=== PATIENT | male | born 1940 | race Caucasian/White ===

== ENCOUNTER 2020-07-04 06:20 | Day surgery (SDC) | payer MEDICARE, SELFPAY ==
[2020-07-04 06:22] VITALS: BP 143/93; PULSE 63; RESP 18; TEMP 36.4; O2SAT 97
[2020-07-04] MEDS: Tropicam./Phenyleph. (1/2.5%) 5 ML BTL OD ×3 (06:45→06:51)
[2020-07-04] MEDS: Povidone-Iodine Ophth 30 ML BTL (07:31)
[2020-07-04] MEDS: Tetracaine 0.5% 4 ML BTL OD (07:31)
[2020-07-04] MEDS: Lidocaine 2% Jelly 6 ML SYR (07:31)
[2020-07-04] MEDS: Balanced Salt Soln.-PLUS 500 ML BAG (07:36)
[2020-07-04] MEDS: Lidocaine 1% Pres-Free 5 ML VIAL (07:36)
[2020-07-04] MEDS: Moxifloxacin-PF 1 MG/ML VIAL (07:56)
--- NOTE | 2020-07-04 08:04 | W.PM.DSUDISC ---
Discharge Plan Disposition Patient Disposition: HOME Condition: Good Discharge Details Attending Provider: Vasquez Hernandez Primary Care Provider: Vasquez Samuel Meds and New Rx's Prescriptions: No Action lisinopril 20 mg Tablet 20 mg PO DAILY RF: 0 sulfamethoxazole-trimethoprim [Bactrim DS] 800-160 mg Tablet 1 tab PO BID RF: 0 sildenafil [Viagra] 100 mg Tablet 25 - 50 mg PO DAILY PRNRF: 0 warfarin 4 mg Tablet 4 mg PO DIRECTED RF: 0 warfarin 3 mg Tablet 3 mg PO DIRECTED RF: 0 zinc gluconate 30 mg Tablet 15 mg PO DAILY RF: 0 warfarin 2 mg Tablet 2 mg PO DIRECTED RF: 0 bilberry 100 mg Capsule 150 mg PO DIRECTED RF: 0 furosemide [Lasix] 20 mg Tablet 20 mg PO DAILY RF: 0 garlic 400 mg Tablet 800 mg PO DAILY RF: 0 cholecalciferol (vitamin D3) [Vitamin D3] 25 mcg (1,000 unit) Capsule 25 mcg PO DAILY RF: 0 alfalfa 250 mg Tablet 1,000 mg PO DIRECTED RF: 0 Discharge Instructions Stand Alone Forms: Post-op Topical CataractMariana (DSU) DS: Diagnosis Discharge Diagnosis (1) Nuclear sclerotic cataract of right eye: Status: Resolved (2) Cortical cataract of right eye: Status: Resolved
--- NOTE | 2020-07-04 08:05 | ROE_ITS ---
Date of service: 07/04/20 Time of Service: 08:05 Operative Note Operative Note DATE OF PROCEDURE: 07/04/20 PRE-OP DIAGNOSIS: Nuclear/cortical cataract, right eye POST-OP DIAGNOSIS: same PROCEDURE: Cataract extraction using phacoemulsification with intraocular lens implant, right eye SURGEON: Vasquez Hernandez ANESTHESIA: MAC and local (sub-tenon's anesthetic infiltration) ESTIMATED BLOOD LOSS: 0 PATHOLOGY: none sent COMPLICATIONS: None Patient was transported to: same day Patient's condition: stable Implants: Vince [employer] Vince [employer] / [employer] Tecnis ZCB00 intraocular lens Indications: Progressive decreased vision due to cataract, right eye Procedure Description: CATARACT SURGERY OPERATIVE REPORT PREOPERATIVE DIAGNOSIS: Nuclear/cortical cataract, right eye POSTOPERATIVE DIAGNOSIS: Same OPERATION: Cataract extraction using phacoemulsification with posterior chamber intraocular lens implant, right eye. IOL: IOL Skip Pit Worker/Model: [employer] Vision / LA Tecnis ZCB00 IOL Power: + 15.50 diopters IOL Serial Number: [id number] Optic Diameter: 6.0mm Haptic/Overall Diameter: 13.0mm PHACO INFO: Petr G2 Microsystemsurion Vision System with OZil and Active Fluidics Cumulative Dispersed Energy (CDE): 8.47 seconds SURGEON: Vasquez Hernandez MD, TAO ANESTHESIA: Monitored Anesthesia Care (MAC), with local sub-tenon's anesthetic infiltration COMPLICATIONS: None SPECIMENS: None INDICATIONS FOR PROCEDURE: Patient is a 80-year-old gentleman with history of diminished visual acuity in his right eye. He is noted to have a significant nuclear cataract of the right eye Patient PROCEDURE: The correct surgical eye was identified and marked as the right eye and the pupil was dilated in the preoperative area using mydriatics and cycloplegics. The dilated pupil size was 7.5 mm. Oral sedation was administered in the form of an Imprimis MKO Melt (midazolam 3mg/ketamine 25mg/ondansetron 2mg). The patient was brought to the operating room where cardiopulmonary monitoring was instituted and surgical time-out was performed, confirming the correct operative eye and IOL power. Topical anesthesia was administered and ophthalmic povidone-iodine 5% was instilled into the conjunctival fornices. Lidocaine gel was applied to the cornea and the caren-ocular area was prepped with Betadine 10% solution and draped in the usual sterile fashion for intraocular surgery, including an aperture drape. A Tegaderm transparent film dressing was cut in half and used to cover the lashes and lid margins. Care was taken to sequester the lashes and lid margins under the Tegaderm dressing. A lid speculum was placed between the lids of the operative eye and the Joe-Ping operating microscope was maneuvered into position. Gerardo scissors were then used to make a conjunctival buttonhole approximately 6mm posterior to the limbus in the inferonasal quadrant. Blunt dissection was carried out to expose bare sclera, and a blunt-tipped sub-tenon?s anesthesia cannula was introduced and passed posteriorly along the globe where non- preserved plain lidocaine was injected into posterior sub-Tenon?s space. A sideport knife was used to make a paracentesis port inferiortemporally. Intraocular phenylephrine/lidocaine was injected into the anterior chamber. The anterior chamber was then filled with Healon Pro. A 2.4mm keratome knife was used to create a half-thickness groove at the limbus and then to construct a three-plane near-clear corneal tunnel extending 2.0mm into clear cornea in the superiortemporal position. . A flap was raised on the anterior capsule and capsulorhexis forceps were used to complete a continuous curvilinear capsulorhexis of 5.0 mm. Balanced salt solution was then used to perform cortical cleaving hydrodissection and nuclear hydrodelineation until the lens could be freely rotated within the capsular bag. The lens nucleus was then disassembled and removed within the capsular bag and iris plane using phacoemulsification. Residual cortical material was removed using the I/A handpiece. The posterior capsule was carefully polished to remove as much residual lens epithelial cells as safely possible. The capsular bag was then inflated and the anterior chamber deepened with viscoelastic. The lens implant described above was inserted into the capsular bag using the [employer] [place] Injector. A Kuglen hook was used to dial the IOL into position. Residual viscoelastic was then removed first from posterior to the IOL, then from the anterior chamber using the I/A handpiece. The lens implant was noted to center nicely within the capsular bag. The incisions were stromally hydrated, and the anterior chamber was reformed using BSS. Then 0.5cc of moxifloxacin 1.0mg/ml were injected into the capsular bag and anterior chamber. The incisions were checked with a Weck spear and found to be secure. Several drops of ophthalmic povidone-iodine 5% were then applied to the eye followed by two drops of Imprimis combination prednisolone/moxifloxacin/nepafenac solution. The drapes were removed and a clear plastic protective eye shield was placed over the eye. The patient was then returned to [facility] in stable condition.
[2020-07-04 08:30] VITALS: BP 125/70; PULSE 69; RESP 18; TEMP 36; O2SAT 95
== END 2020-07-04 08:40 | disposition home or self-care (01) ==
PROVIDERS: PCP Family Medicine; Visit Provider Ophthalmology
PROC: (CPT 66984; principal; 2020-07-04 07:30)
DX: H25.11 Age-related nuclear cataract, right eye (principal); H25.011 Cortical age-related cataract, right eye
CPT/HCPCS: 66984; V2632

== ENCOUNTER 2020-07-18 08:54 | Day surgery (SDC) | payer MEDICARE, SELFPAY ==
[2020-07-18 09:00] VITALS: BP 137/80; PULSE 69; RESP 18; TEMP 36.4; O2SAT 95
[2020-07-18] MEDS: Tropicam./Phenyleph. (1/2.5%) 5 ML BTL OS ×3 (09:18→09:23)
[2020-07-18] MEDS: Balanced Salt Soln.-PLUS 500 ML BAG (10:32)
[2020-07-18] MEDS: Lidocaine 1% Pres-Free 5 ML VIAL (10:33)
[2020-07-18] MEDS: Lidocaine 2% Jelly 6 ML SYR (10:34)
[2020-07-18] MEDS: Moxifloxacin-PF 1 MG/ML VIAL (10:34)
[2020-07-18] MEDS: Povidone-Iodine Ophth 30 ML BTL (10:35)
[2020-07-18] MEDS: Tetracaine 0.5% 4 ML BTL OS (10:37)
--- NOTE | 2020-07-18 10:45 | W.PM.DSUDISC ---
Discharge Plan Disposition Patient Disposition: HOME Condition: Good Discharge Details Attending Provider: Vasquez Hernandez Primary Care Provider: Vasquez Samuel Home Meds and New Rx's Prescriptions: No Action lisinopril 20 mg Tablet 20 mg PO DAILY RF: 0 sildenafil [Viagra] 100 mg Tablet 25 - 50 mg PO DAILY PRNRF: 0 warfarin 4 mg Tablet 4 mg PO DIRECTED RF: 0 warfarin 3 mg Tablet 3 mg PO DIRECTED RF: 0 zinc gluconate 30 mg Tablet 15 mg PO DAILY RF: 0 warfarin 2 mg Tablet 2 mg PO DIRECTED RF: 0 bilberry 100 mg Capsule 150 mg PO DIRECTED RF: 0 furosemide [Lasix] 20 mg Tablet 20 mg PO DAILY RF: 0 garlic 400 mg Tablet 800 mg PO DAILY RF: 0 cholecalciferol (vitamin D3) [Vitamin D3] 25 mcg (1,000 unit) Capsule 25 mcg PO DAILY RF: 0 alfalfa 250 mg Tablet 1,000 mg PO DIRECTED RF: 0 Discharge Instructions Stand Alone Forms: Post-op Topical Cataract, Mariana Aviles (DSU) Discharge Orders Discharge Orders: Discharge Order (Routine); Ordered 07/18/20 Ordered By: Vasquez Hernandez DS: Diagnosis Discharge Diagnosis (1) Cortical cataract of left eye: Status: Resolved (2) Nuclear sclerotic cataract of left eye: Status: Resolved
--- NOTE | 2020-07-18 10:46 | W.PM.OP ---
Date of service: 07/18/20 Time of Service: 10:46 Operative Note Operative Note DATE OF PROCEDURE: 07/18/20 PRE-OP DIAGNOSIS: Nuclear/cortical cataract, left eye POST-OP DIAGNOSIS: same PROCEDURE: Cataract extraction using phacoemulsification with intraocular lens implant, left eye SURGEON: Vasquez Hernandez ANESTHESIA: MAC and local (sub-tenon's anesthetic infiltration) PATHOLOGY: none sent COMPLICATIONS: None Patient was transported to: same day Patient's condition: stable Implants: Vince [employer] / [employer] Tecnis ZCB00 Indications: Progressive decreased vision due to cataract, left eye Procedure Description: CATARACT SURGERY OPERATIVE REPORT PREOPERATIVE DIAGNOSIS: Nuclear/cortical cataract, left eye POSTOPERATIVE DIAGNOSIS: Same OPERATION: Cataract extraction using phacoemulsification with posterior chamber intraocular lens implant, left eye. IOL: IOL Access Specialist/Model: J[employer]J Vision / [place] Tecnis ZCB00 IOL Power: + 18.50 diopters IOL Serial Number: [id number] Optic Diameter: 6.0mm Haptic/Overall Diameter: 13.0mm PHACO INFO: Petr sougouurion Vision System with OZil and Active Fluidics Cumulative Dispersed Energy (CDE): 4.94 seconds SURGEON: Vasquez Hernandez MD, TAO ANESTHESIA: Monitored Anesthesia Care (MAC), with local sub-tenon's anesthetic infiltration COMPLICATIONS: None SPECIMENS: None INDICATIONS FOR PROCEDURE: Patient is a 80-year-old gentleman with history of diminished visual acuity in both eyes secondary to the development of bilateral cataract. He has already acquired cataract surgery right eye and is doing well postoperatively. He now presents for cataract surgery left eye. PROCEDURE: The correct surgical eye was identified and marked as the left eye and the pupil was dilated in the preoperative area using mydriatics and cycloplegics. The dilated pupil size was 6.5 mm. Oral sedation was administered in the form of an Imprimis MKO Melt (midazolam 3mg/ketamine 25mg/ondansetron 2mg). The patient was brought to the operating room where cardiopulmonary monitoring was instituted and surgical time-out was performed, confirming the correct operative eye and IOL power. Topical anesthesia was administered and ophthalmic povidone-iodine 5% was instilled into the conjunctival fornices. Lidocaine gel was applied to the cornea and the caren-ocular area was prepped with Betadine 10% solution and draped in the usual sterile fashion for intraocular surgery, including an aperture drape. A Tegaderm transparent film dressing was cut in half and used to cover the lashes and lid margins. Care was taken to sequester the lashes and lid margins under the Tegaderm dressing. A lid speculum was placed between the lids of the operative eye and the Joe-Ping operating microscope was maneuvered into position. Gerardo scissors were then used to make a conjunctival buttonhole approximately 6mm posterior to the limbus in the inferonasal quadrant. Blunt dissection was carried out to expose bare sclera, and a blunt-tipped sub-tenon?s anesthesia cannula was introduced and passed posteriorly along the globe where non-preserved plain lidocaine was injected into posterior sub-Tenon?s space. A sideport knife was used to make a paracentesis port superior/superiortemporally. Intraocular phenylephrine/lidocaine was injected into the anterior chamber. The anterior chamber was then filled with Healon Pro. A 2.4mm keratome knife was used to create a half-thickness groove at the limbus and then to construct a three-plane near-clear corneal tunnel extending 2.0mm into clear cornea in the temporal position. . A flap was raised on the anterior capsule and capsulorhexis forceps were used to complete a continuous curvilinear capsulorhexis of 5.0 mm. Balanced salt solution was then used to perform cortical cleaving hydrodissection and nuclear hydrodelineation until the lens could be freely rotated within the capsular bag. The lens nucleus was then disassembled and removed within the capsular bag and iris plane using phacoemulsification. Residual cortical material was removed using the 45-degree angled silicone I/A tip with 0.3mm port. The posterior capsule was carefully polished to remove as much residual lens epithelial cells as safely possible. The capsular bag was then inflated and the anterior chamber deepened with viscoelastic. The lens implant described above was inserted into the capsular bag using the [employer] [place] Injector. A Kuglen hook was used to dial the IOL into position. Residual viscoelastic was then removed first from posterior to the IOL, then from the anterior chamber using the I/A handpiece. The lens implant was noted to center nicely within the capsular bag. The incisions were stromally hydrated, and the anterior chamber was reformed using BSS. Then 0.5cc of moxifloxacin 1.0mg/ml were injected into the capsular bag and anterior chamber. The incisions were checked with a Weck spear and found to be secure. Several drops of ophthalmic povidone-iodine 5% were then applied to the eye followed by two drops of Imprimis combination prednisolone/moxifloxacin/nepafenac solution. The drapes were removed and a clear plastic protective eye shield was placed over the eye. The patient was then returned to Same Day Surgery in stable condition.
== END 2020-07-18 11:09 | disposition home or self-care (01) ==
PROVIDERS: PCP Family Medicine; Visit Provider Ophthalmology
PROC: (CPT 66984; principal; 2020-07-18 11:30)
DX: H25.12 Age-related nuclear cataract, left eye (principal); Z86.711 Personal history of pulmonary embolism; Z79.01 Long term (current) use of anticoagulants
CPT/HCPCS: 66984; V2632

== ENCOUNTER → 2022-04-09 08:38 | Outpatient (BNVA) | payer MEDICARE, SELFPAY | PROVIDERS: PCP Family Medicine; Referring Provider Family Medicine; Visit Provider Urology | DX: R33.8 Other retention of urine (principal); N28.89 Other specified disorders of kidney and ureter | CPT/HCPCS: 99205 ==

== ENCOUNTER → 2022-04-16 08:54 | Outpatient (BNVA) | payer MEDICARE, SELFPAY | PROVIDERS: PCP Family Medicine; Referring Provider Family Medicine; Visit Provider Urology | DX: R33.8 Other retention of urine (principal) | CPT/HCPCS: 51728; 51784; 51797 ==

== ENCOUNTER → 2022-06-03 10:13 | Outpatient (BNVA) | payer MEDICARE, SELFPAY | PROVIDERS: PCP Family Medicine; Referring Provider Family Medicine; Visit Provider Urology | DX: R33.8 Other retention of urine (principal); N28.89 Other specified disorders of kidney and ureter | CPT/HCPCS: 99214 ==

== ENCOUNTER → 2022-12-17 13:48 | Outpatient (BNVA) | payer MEDICARE, SELFPAY | PROVIDERS: PCP Family Medicine; Referring Provider Family Medicine; Visit Provider Urology ==

== ENCOUNTER 2022-12-17 14:47 | Outpatient (CLI) | payer MEDICARE, SELFPAY | END 2022-12-17 14:48 | disposition home or self-care (01) | LOC: LBO 14:48 | PROVIDERS: PCP Family Medicine; Visit Provider Urology | DX: R33.9 Retention of urine, unspecified (principal) | CPT/HCPCS: 99213 ==

== ENCOUNTER 2022-12-17 15:22 | Outpatient (REF) | payer MEDICARE, SELFPAY ==
--- OUTSIDE RECORDS SUMMARY | 2022-12-17 15:24 | XMS_ITS ---
Author Name Vasquez Samuel Address [address], [place] [id number] Organization [facility] Address [address], [place] [id number] Care Team Providers Care Holistic Specialist Name Role Phone Vasquez Samuel Unavailable [phone] PROBLEMS Type Condition ICD9-CM Code HBH34-KP Code Onset Dates Condition Status SNOMED Code Problem Essential hypertension I10 Active 00381342 Problem Esophagitis K20.9 Active 94874784 Problem Actinic keratosis L57.0 Active 068200 Problem Non morbid obesity due to excess calories E66.09 Active 005040435 Problem Glucose intolerance (pre-diabetes) R73.09 Active 413368706 Problem Hernia K46.9 Active 11025238 Problem Venous stasis I87.8 Active 64391291 Problem 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 Active Problem Acute deep vein thrombosis (DVT) of iliac vein of both lower extremities I82.423 Active Problem History of pulmonary embolism Z86.711 Active 485974645 Problem Bladder outlet obstruction N32.0 Active 432735556 Problem 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 Active 156 3006 Problem 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 Active 311673748 Problem Atrial fibrillation by electrocardiogram I48.91 Active 2482468 4 Problem Chronic anticoagulation Z79.01 Active 665769639 Problem BPH loc w urin obs/LUTS N40.1 Active 844669398 Problem Erectile disorder, acquired, generalized, severe F52.21 Active 52383281 4278660 Problem 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 Active [id number] ALLERGIES No Known Allergies ENCOUNTERS Encounter Location Date Diagnosis [address] [id number] 13 Nov, [address] [id number] 01 Sep, 2022 ER Visit ER and Transitional Care Management TCM [address] [id number] 21 Aug, [address] [id number] 15 Aug, 2022 A-fib I48.91 and Chronic anticoagulation Z79.[address] [id number] 10 Aug, [address] [id number] 07 Jul, 2022 Encounter for immunization Z23 [address] [id number] 20 Apr, [address] [id number] 18 Apr, [address] [id number] 22 Mar, [address] [id number] 20 Mar, 2022 Transitional Care Management TCM and ER Visit ER [address] [id number] 15 Mar, 2022 Pre-operative laboratory examination Z01.[address] [id number] 15 Mar, 2022 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 and Gross hematuria R31.[address] [id number] 14 Mar, 2022 Chronic anticoagulation Z79.01 [address] [place], [place] [id number] 13 Mar, 2022 [facility] [address] [place], [place] [id number] 13 Mar, [address] [id number] 13 Mar, 2022 Bladder outlet obstruction N32.0 and Urinary tract infection in male N39.[address] [id number] 09 Mar, [address] [id number] 08 Mar, 2022 Glucose intolerance (pre-diabetes) R73.09 ; BPH loc w urin obs/LUTS N40.1 and Bladder outlet obstruction N32.[address] [id number] 03 Mar, [address] [id number] 20 Jan, [address], [place] [id number] Dec, Essential hypertension I10 ; Venous stasis I87.8 ; History of pulmonary embolism Z86.711 ; Chronic anticoagulation Z79.01 ; Erectile disorder, acquired, generalized, severe F52.21 and Diabetes E11.[address] [id number] Oct, [address] [id number] Oct, [address] [id number] 10 Aug, 2021 Annual physical exam Z00.00 ; Dietary counseling Z71.3 and Chronic anticoagulation Z79.[address] [id number] 08 Aug, [address] [id number] 02 Jul, 2021 Encounter for immunization Z23 [address] [id number] 11 May, 2021 Essential hypertension I10 ; Chronic anticoagulation Z79.01 ; Non morbid obesity due to excess calories E66.09 ; History of pulmonary embolism Z86.711 and Atrial fibrillation by electrocardiogram I48.[address], [place] [id number] Apr, Essential hypertension I10 [address], [place] [id number] February, [address] [id number] February, Essential hypertension I10 and Non morbid obesity due to excess calories E66.[address], [place] [id number] February, PE (pulmonary thromboembolism) I26.[address], [place] [id number] February, [address], [place] [id number] February, Atrial fibrillation by electrocardiogram I48.[address], [place] [id number] February, [address], [place] [id number] Jan, Atrial fibrillation by electrocardiogram I48.[address] [id number] Dec, Atrial fibrillation by electrocardiogram I48.91 and History of pulmonary embolism Z86.[address], [place] [id number] 09 Dec, 2020 Atrial fibrillation by electrocardiogram I48.[address], [place] [id number] 02 Dec, 2020 Atrial fibrillation by electrocardiogram I48.[address], [place] [id number] 23 Nov, 2020 Chronic anticoagulation Z79.01 ; Acute deep vein thrombosis (DVT) of iliac vein of both lower extremities I82.423 and History of pulmonary embolism Z86.[address], [place] [id number] Oct, Sputum production R05 [address], [place] [id number] Oct, Essential hypertension I10 [address], [place] [id number] Oct, [address], [place] [id number] Oct, Chronic anticoagulation Z79.01 ; Essential hypertension I10 ; Venous stasis I87.8 ; Atrial fibrillation by electrocardiogram I48.91 ; History of pulmonary embolism Z86.711 and Non morbid obesity due to excess calories E66.[address], [place] [id number] Sep, Chronic anticoagulation Z79.[address], [place] [id number] Aug, Atrial fibrillation by electrocardiogram I48.[address] [id number] Aug, [address] [id number] Jul, [address] [id number] Jul, Atrial fibrillation by electrocardiogram I48.91 and Trochanteric bursitis of left hip M70.[address], [place] [id number] Jun, Transitional Care Management TCM [address] [id number] Jun, Chronic anticoagulation Z79.[address], [place] [id number] May, Encounter for pre-operative examination Z01.818 and 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, [place] [id number] May, Chronic anticoagulation Z79.[address], [place] [id number] 03 May, [address], [place] [id number] 27 Apr, 2020 Essential hypertension I10 [address], [place] [id number] 14 Apr, [address], [place] [id number] 14 Apr, [address], [place] [id number] 07 Apr, 2020 Chronic anticoagulation Z79.01 ; Venous stasis I87.8 ; Non morbid obesity due to excess calories E66.09 ; Atrial fibrillation by electrocardiogram I48.91 ; Erectile disorder, acquired, generalized, severe F52.21 and Exercise counseling Z71.[address], [place] [id number] 09 Mar, 2020 Discomfort of left hip M25.552 and History of pulmonary embolism Z86.[address], [place] [id number] 08 Mar, [address], [place] [id number] 26 Feb, [address], [place] [id number] 14 Feb, 2020 Atrial fibrillation by electrocardiogram I48.[address], [place] [id number] 13 Jan, 2020 Atrial fibrillation by electrocardiogram I48.[address], [place] [id number] 25 Dec, 2019 Venous stasis I87.8 ; Non morbid obesity due to excess calories E66.09 ; Hernia K46.9 ; Atrial fibrillation by electrocardiogram I48.91 and History of pulmonary embolism Z86.[address], [place] [id number] 16 Dec, [address], [place] [id number] 16 Dec, [address], [place] [id number] 13 Dec, 2019 Chronic anticoagulation Z79.[address], [place] [id number] 14 Nov, 2019 Chronic anticoagulation Z79.[address], [place] [id number] 31 Oct, [address], [place] [id number] 24 Oct, 2019 Essential hypertension I10 [address] [place] [id number] 15 Oct, 2019 Atrial fibrillation by electrocardiogram I48.91 ; Actinic keratosis L57.0 ; Venous stasis I87.8 ; Non morbid obesity due to excess calories E66.09 and History of pulmonary embolism Z86.[address] [id number] 27 Sep, 2019 Chronic anticoagulation Z79.[address] [id number] Sep, [address] [id number] 11 Sep, 2019 Chronic anticoagulation Z79.01 ; Essential hypertension I10 ; Venous stasis I87.8 and Atrial fibrillation by electrocardiogram I48.[address] [id number] 04 Sep, 2019 Chronic anticoagulation Z79.01 and Cellulitis of other specified site L03.[address] [id number] Sep, Transitional Care Management [address] [id number] Sep, [facility] [address] [place], [place] [id number] 30 Aug, [address] [id number] Aug, PE (pulmonary thromboembolism) I26.[address] [id number] 20 Aug, 2019 Chronic anticoagulation Z79.01 ; History of pulmonary embolism Z86.711 ; Atrial fibrillation by electrocardiogram I48.91 and Non morbid obesity due to excess calories E66.[address] [id number] 15 Aug, 2019 Edema of both legs R60.0 ; Acute deep vein thrombosis (DVT) I82.409 and Hernia K46.[address] [id number] 14 Aug, [address] [id number] 14 Aug, 2019 Chronic anticoagulation Z79.01 [facility] [address] [place], [place] [id number] 09 Aug, [address] [id number] Aug, [address] [id number] Aug, [address] [id number] Aug, Acute left ankle pain M25.57 2 ; Cellulitis of left lower extremity L03.116 ; Venous stasis I87.8 and History of pulmonary embolism Z86.[address] [id number] 16 Jul, 2019 Chronic anticoagulation Z79.[address] [id number] 10 Jul, [address] [id number] Jul, [address] [id number] Jun, Atrial fibrillation by electrocardiogram I48.[address] [id number] 04 Jun, [address] [id number] Jun, Chronic anticoagulation Z79.[address] [id number] May, Chronic anticoagulation Z79.01 and Bladder outlet obstruction N32.[address] [id number] May, Atrial fibrillation by electrocardiogram I48.[address] [id number] May, Recurrent UTI N39.0 and Burning with urination R30.[address] [id number] May, Bladder outlet obstruction N32.0 and PE (pulmonary thromboembolism) I26.[address] [id number] May, [address] [id number] May, Bladder outlet obstruction N32.0 and Chronic anticoagulation Z79.[address] [id number] Apr, Chronic anticoagulation Z79.01 ; Non morbid obesity due to excess calories E66.09 ; Atrial fibrillation by electrocardiogram I48.91 and BPH loc w urin obs/LUTS N40.[address] [id number] Apr, Atrial fibrillation by electrocardiogram I48.91 ; Essential hypertension I10 ; PE (pulmonary thromboembolism) I26.99 and Indwelling Velazquez catheter present Z96.[address] [id number] Apr, Essential hypertension I10 [address] [id number] Apr, [address], [place] [id number] Apr, Acute GI bleeding K92.2 and Atrial fibrillation by electrocardiogram I48.[address], [place] [id number] Apr, Essential hypertension I10 [address], [place] [id number] Apr, Chronic anticoagulation Z79.01 ; Indwelling Velazquez catheter present Z96.0 and Acute GI bleeding K92.[address], [place] [id number] Apr, [address] [id number] Apr, [address], [place] [id number] Apr, [address], [place] [id number] Apr, Melena K92.1 ; Hospital discharge follow-up Z09 and Chronic anticoagulation Z79.[address], [place] [id number] Apr, [address] [id number] Apr, [address] [id number] Apr, [address] [id number] Apr, Localized swelling of both lower legs R22.43 ; History of pulmonary embolism Z86.711 ; H/O deep venous thrombosis Z86.718 and Chronic anticoagulation Z79.[address], [place] [id number] Apr, [address], [place] [id number] Apr, Atrial fibrillation by electrocardiogram I48.91 and PE (pulmonary thromboembolism) I26.[address], [place] [id number] Apr, [address], [place] [id number] Mar, [address], [place] [id number] Mar, Venous stasis I87.8 ; Atrial fibrillation by electrocardiogram I48.91 ; Hernia K46.9 and Bilateral leg edema R60.[address], [place] [id number] Mar, [address], [place] [id number] Mar, Atrial fibrillation by electrocardiogram I48.[address], [place] [id number] 19 Mar, [address] [id number] Mar, Atrial fibrillation by electrocardiogram I48.[address], [place] [id number] Mar, [address], [place] [id number] Mar, Community acquired pneumonia , unspecified laterality J18.9 ; Acute deep vein thrombosis (DVT) of iliac vein of both lower extremities I82.423 ; Atrial fibrillation by electrocardiogram I48.91 ; Hernia K46.9 and Gastric mass K31.[address], [place] [id number] Mar, [address] [id number] 03 Mar, 2019 Encounter for immunization Z23 and Gastric mass K31.[address], [place] [id number] February, Atrial fibrillation by electrocardiogram I48.[address], [place] [id number] February, PE (pulmonary thromboembolism) I26.[address], [place] [id number] Jan, [address], [place] [id number] Jan, Essential hypertension I10 [address], [place] [id number] Jan, Annual physical exam Z00.00 ; Dietary counseling Z71.3 ; Screening for cardiovascular condition Z13.6 and PE (pulmonary thromboembolism) I26.[address], [place] [id number] Dec, PE (pulmonary thromboembolism) I26.[address], [place] [id number] Nov, PE (pulmonary thromboembolism) I26.[address], [place] [id number] Nov, Hernia K46.[address], [place] [id number] Nov, PE (pulmonary thromboembolism) I26.[address], [place] [id number] Oct, PE (pulmonary thromboembolism) I26.[address], [place] [id number] Oct, Essential hypertension I10 [address] [id number] Oct, Atrial fibrillation by electrocardiogram I48.[address], [place] [id number] Sep, PE (pulmonary thromboembolism) I26.[address], [place] [id number] Sep, Atrial fibrillation by electrocardiogram I48.[address], [place] [id number] Sep, PE (pulmonary thromboembolism) I26.[address], [place] [id number] Aug, Acute deep vein thrombosis (DVT) of iliac vein of both lower extremities I82.[address], [place] [id number] Jul, [address], [place] [id number] Jul, PE (pulmonary thromboembolism) I26.99 and Encounter for immunization Z23 [address], [place] [id number] Jul, PE (pulmonary thromboembolism) I26.[address], [place] [id number] Jul, Acute deep vein thrombosis (DVT) of iliac vein of both lower extremities I82.[address], [place] [id number] Jul, Atrial fibrillation by electrocardiogram I48.[address], [place] [id number] Jun, Acute deep vein thrombosis (DVT) of iliac vein of both lower extremities I82.[address], [place] [id number] May, PE (pulmonary thromboembolism) I26.[address], [place] [id number] May, Acute deep vein thrombosis (DVT) of iliac vein of both lower extremities I82.[address], [place] [id number] May, PE (pulmonary thromboembolism) I26.[address], [place] [id number] Apr, Essential hypertension I10 [address], [place] [id number] Apr, Acute deep vein thrombosis (DVT) of iliac vein of both lower extremities I82.[address], [place] [id number] Mar, Acute deep vein thrombosis (DVT) of iliac vein of both lower extremities I82.[address] [id number] 20 Mar, 2018 Acute deep vein thrombosis (DVT) of iliac vein of both lower extremities I82.423 and PE (pulmonary thromboembolism) I26.[address] [id number] 13 Mar, 2018 Acute deep vein thrombosis (DVT) of iliac vein of both lower extremities I82.[address] [id number] 07 Mar, 2018 DVT of axillary vein, acute bilateral I82.A13 [address] [id number] 01 Mar, 2018 Atrial fibrillation by electrocardiogram I48.91 ; PE (pulmonary thromboembolism) I26.99 ; Acute deep vein thrombosis (DVT) of iliac vein of both lower extremities I82.423 ; 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 and 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 [id number] February, Atrial fibrillation by electrocardiogram I48.91 and DVT of axillary vein, acute bilateral I82.A13 [address] [id number] February, DVT (deep venous thrombosis) 453.[address] [id number] February, [address] [id number] February, Transitional Care Management [address] [id number] February, Atrial fibrillation by electrocardiogram I48.91 and Hernia K46.[address] [id number] February, [address] [id number] February, Pre-op exam Z01.818 ; Atrial fibrillation by electrocardiogram I48.91 ; Essential hypertension I10 ; Non morbid obesity due to excess calories E66.09 and Actinic keratosis L57.[address] [id number] Jan, Hernia K46.9 ; Non morbid obesity due to excess calories E66.09 ; Venous stasis I87.8 ; Actinic keratosis L57.0 and Essential hypertension I10 [address] [id number] Nov, Glucose intolerance (pre-diabetes) R73.09 ; Essential hypertension I10 ; Venous stasis I87.8 ; Hernia K46.9 ; Actinic keratosis L57.0 and Non morbid obesity due to excess calories E66.[address] [id number] Oct, Essential hypertension I10 [address] [id number] Jul, Elevated blood sugar R73.9 ; Venous stasis I87.8 ; Glucose intolerance (pre-diabetes) R73.09 and Essential hypertension I10 [address] [id number] Jul, Encounter for immunization Z23 [address] [id number] Apr, Glucose intolerance (pre-diabetes) R73.09 ; Actinic keratosis L57.0 and Non morbid obesity due to excess calories E66.[address] [id number] Apr, Essential hypertension I10 [address] [id number] Jan, [address] [id number] Jan, Tick bite, initial encounter W57.XXXA [address] [id number] Oct, Glucose intolerance (pre-diabetes) R73.09 ; Essential hypertension I10 and Hernia K46.9 [facility] [address] [place], [place] [id number] Aug, [address] [id number] Jun, Glucose intolerance (pre-diabetes) R73.09 ; Venous stasis I87.8 ; Non morbid obesity due to excess calories E66.09 ; Essential hypertension I10 and Encounter for immunization Z23 [facility] [address] [place], [place] [id number] Apr, [address] [id number] Apr, Essential hypertension I10 [address] [id number] February, Glucose intolerance (pre-diabetes) R73.09 ; Venous stasis I87.8 and Non morbid obesity due to excess calories E66.[address] [id number] Jan, Esophagitis K20.9 ; Essentia l hypertension I10 ; Hearing deficit V41.2 and Encounter for immunization Z23 [address] [id number] Oct, Bibasilar crackles R09.[address] [id number] Oct, Bibasilar crackles R09.[address] [id number] Oct, Obesity 278.00 ; Essential hypertension I10 ; Actinic keratosis L57.0 and Esophagitis K20.[address] [id number] Jul, Flu vaccine need Z23 [address] [id number] Jun, Obesity 278.00 ; Benign essential HTN 401.1 and UGI bleed 578.[address] [id number] Apr, Benign essential HTN 401.[address] [id number] Mar, Irregular heart beats 427.9 and Wheezing 786.[address] [id number] Mar, 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 Rales 786.[address] [id number] Mar, Obesity 278.00 ; Annual Physical Exam V70.0 ; Benign essential HTN 401.1 ; Actinic keratoses 702.0 ; Hearing deficit V41.2 and Memory deficit 780.[address] [id number] February, Tick bite 919.[address] [id number] Nov, Obesity 278.00 ; UGI bleed 578.9 ; Hearing deficit V41.2 and Benign essential HTN 401.[address] [id number] Oct, [address] [id number] Aug, Scrotal hematoma 608.83 ; Obesity 278.00 ; Benign essential HTN 401.1 and Hearing deficit V41.[address], [place] [id number] Jul, Scrotal hematoma 608.[address], [place] [id number] Jul, [address] [id number] Jul, Scrotal hematoma 608.[address], [place] [id number] Jul, Benign essential HTN 401.1 ; Obesity 278.00 ; Need for influenza vaccination V04.81 and Hematoma of scrotum 608.[address], [place] [id number] May, Hydrocele 603.[address], [place] [id number] May, [address] [id number] Mar, Annual Physical Exam V70.0 ; Obesity 278.00 ; UGI bleed 578.9 ; Benign essential HTN 401.1 ; Elevated fasting glucose 790.21 and Irregular heart rate 427.[address] [id number] Jan, [address] [id number] Dec, Annual Physical Exam V70.0 ; UGI bleed 578.9 ; Actinic keratoses 702.0 ; Obesity 278.00 and Benign essential HTN 401.1 [facility] [address] [place], [place] [id number] Oct, [facility] [address] [place], [place] [id number] Oct, [address] [id number] Aug, Tick bite 919.[address] [id number] Jun, [address] [id number] Jun, Influenza vaccine needed V04.81 ; Benign essential HTN 401.1 ; Obesity 278.00 ; DVT (deep venous thrombosis) 453.40 ; Esophagitis 530.10 ; UGI bleed 578.9 and Screening for cholesterol level V77.[address], [place] [id number] May, [address], [place] [id number] Jan, UGI bleed 578.9 ; Obesity 278.00 ; Benign essential HTN 401.1 and Actinic keratoses 702.[address] [id number] Nov, Anemia 285.[address] [id number] Nov, [address] [id number] Nov, Colon cancer screening V76.[address] [id number] Nov, [address] [id number] Nov, [address] [id number] Nov, [address] [id number] Nov, Anemia 285.9 and Heme positive stool 792.[address] [id number] 05 Jun, 2012 Obesity 278.00 ; Benign essential HTN 401.1 ; Diabetes mellitus 250.00 and DVT (deep venous thrombosis) 453.[address] [id number] 05 Jun, 2012 Benign essential HTN 401.1 ; Actinic keratoses 702.0 and Obesity 278.[address] [id number] Mar, [address] [id number] February, [address] [id number] Sep, [address] [id number] Aug, IMMUNIZATIONS Vaccine Route Administration Date Status COVID-19 Moderna [id number] Unknown Nov 29, 2020 Admin istered COVID-19 Moderna 10086 Unknown December 30, 2020 Adm inistered COVID-19 Moderna [id number] Unknown Sep 02, 2021 Admin istered Influenza Adult FluBlok high dose PURCHASED IM Intramuscular Jul 25, 2021 Administered Influenza Adult FluBlok high dose PURCHASED IM Intramuscular Jul 30, 2022 Administered COVID-19 Pfizer IM Intramuscular March 26, 2022 Adminis tered INFLUENZA 18 YRS TO 64 YRS [employer] Unknown Sep 08, 2011 Administered Influenza Adult FluBlok high dose PURCHASED IM Intramuscular Aug 22, 2019 Administered Influenza Adult FluBlok high dose PURCHASED IM Intramuscular Aug 23, 2018 Administered Pneumovax [facility] [id number] Unknown March 19, 2009 Adminis tered TDaP Adult [facility] [id number] Unknown March 19, 2009 Admini stered INFLUENZA 18 YRS TO 64 YRS [employer] SUPPLIED IM Intramuscular Jul 29, 2017 Administered INFLUENZA 18 YRS TO 64 YRS [employer] SUPPLIED IM Intramuscular Jul 12, 2016 Administered INFLUENZA 18 YRS TO 64 YRS [employer] SUPPLIED IM Intramuscular Aug 06, 2015 Administered INFLUENZA 18 YRS TO 64 YRS [employer] SUPPLIED IM Intramuscular Jul 11, 2013 Administered SOCIAL HISTORY Qualifiers Date Former Smoker REASON FOR REFERRAL Reason positive stool card anemia Referral Organization [facility] Referring Provider First Name Vasquez Referring Provider Last Name Jimmie Referring Provider Specialty Family SCYFIX Referring Provider Referring Provider email [email or web address] Referred Provider Shivam Eli Referred Provider Specialty Gastroentero logy Referral Appointment Date 2012-11-30 Reason ANEMIA, HEME POS STO OLS - LAST COLO 2008 Referral Organization [facility] Referring Provider First Name Vasquez Referring Provider Last Name Jimmie Referring Provider Specialty Family SCYFIX Referring Provider Referring Provider email [email or web address] Referred Provider Shivam Eli Referred Provider Specialty Gastroentero logy Referral Appointment Date 2012-11-30 Reason Evaluate and treat Referral Organization [facility] Referring Provider First Name Vasquez Referring Provider Last Name Jimmie Referring Provider Specialty Family SCYFIX Referring Provider Referring Provider email [email or web address] Referred Provider [facility] Referral Appointment Date 2014-06-25 Reason geriatric psych for memory issues - family notes Referral Organization [facility] Referring Provider First Name Vasquez Referring Provider Last Name Jimmie Referring Provider Specialty Family SCYFIX Referring Provider Referring Provider email [email or web address] Referred Provider [facility] [place], Psychiatry Referral Appointment Date 2014-09-02 Reason ltn ent - audiology for hearing deficits. Referral Organization [facility] Referring Provider First Name Vasquez Referring Provider Last Name Jimmie Referring Provider Specialty Family SCYFIX Referring Provider Referring Provider email [email or web address] Referred Provider Armen Reeves Referred Provider Specialty Otolaryngolo gy Referral Appointment Date 2014-09-10 Reason VERONICA - ANN MARIE - ABD HERNIA - MIDLINE - WISH TO AVOID SURGERY Faxed referral please call pt to schedule appt Referral Organization [facility] Damon Gregory Referring Provider First Name Vasquez Referring Provider Last Name Jimmie Referring Provider Specialty [facility] SCYFIX Referring Provider Referring Provider email [email or web address] Referred Provider Sammy Beasley Referred Provider Specialty General Surg samm Referral Appointment Date 2018-01-02 Reason assess and treat Fax ed referral. Please call pt to schedule appt. 05/17/2018 Referral Organization [facility] Damon Gregory Referring Provider First Name Vasquez Referring Provider Last Name Jimmie Referring Provider Specialty [employer] Referring Provider Referring Provider email [email or web address] Referred Provider Stefan Puentes Referred Provider Specialty Cardiology Referral Appointment Date 2018-06-27 Reason Please evaluate and treat Hernia Faxed referral. Please call pt to schedule appt. 11/29/2018 [facility] [place] called looking for last OV, advised Pt last OV 03/2018 and is scheduled for 01/22/19. [facility] [place] Referral Organization [facility] Damon Gregory Referring Provider First Name Vasquez Referring Provider Last Name Jimmie Referring Provider Specialty [facility] SCYFIX Referring Provider Referring Provider email [email or web address] Referred Provider [facility] [place],General Surgery Referred Provider Specialty General Surg samm Referral Appointment Date 2019-02-26 Reason FAXED TO [facility] 6.9.20 22 [place] Bladder Obstruction SHRUTHI AT [facility] - SEND PSA, BLADDER SCAN RESULTS OF IH STUDY AND TODAY'S NOTE Please contact our office within 7 days to notify [facility] of scheduled appointment Referral Organization [facility] Damon Gregory Referring Provider First Name Vasquez Referring Provider Last Name Jimmie Referring Provider Specialty [facility] SCYFIX Referring Provider Referring Provider email [email or web address] Referred Provider Lc Mcbride Referred Provider Specialty Urology Referral Appointment Date 2022-04-20 FUNCTIONAL STATUS PLAN OF CARE Activity Details VITAL SIGNS Temperature 97.1 degrees Fahrenheit Heart Rate 78 BPM 2022-09-07 Respiratory Rate 18 /min 2022-09-07 Oximetry 98 % 2022-09-07 Height 71.25 in 2022-09-07 Weight 254 lbs 2022-09-07 BMI 35.17 kg/m2 2022-09-07 Blood pressure systolic 132 mmHg Blood pressure diastolic 72 mmHg 2022-08 MEDICATIONS Medication Instructions Dosage Frequency Start Date End Date Duration Status Warfarin Sodium 4 MG Take 1 tablet by mouth once daily 30 Active COUMADIN 5 MG 5 MG Orally Once a day or as directed 1Tablet February, 30 days Active Garlic 400 MG Orally qd 2 24h 90 days Active Lisinopril 20 MG Take 1 tablet by mouth once daily for 90 days 90 Active Zinc 15 MG Orally Once a day 1 capsule 24h 30 day(s) Active Saw Delta 80 MG as directed Active Furosemide 20 MG 1 tablet 12h 60 days Active Vitamin D 1000 UNIT Orally Once a day 1 capsule 24h 90 days Active PROCEDURES Procedure Date Ordered Result Body Site US EXAM ABDO BACK WALL, COMP March 31, 2022 INFLUENZA-Adults ([facility] PURCHASED) Jul 12, 2016 [facility] VISIT ESTABLISHED PATIENT May 25, 2019 GLYCATED HEMOGLOBIN TEST April 05, 2014 Fluzone High-Dose over age 65 Aug 23, 2018 CAPILLARY BLOOD DRAW March 30, 2018 CAPILLARY BLOOD DRAW May 03, 2018 [employer] [facility] Phone Consultation April 12, 2022 Transitional Care Management-CC Portion Sep 23, 2022 FLU VACCINE Jul 29, 2017 CAPILLARY BLOOD DRAW March 23, 2018 CAPILLARY BLOOD DRAW April 27, 2019 [employer] Phone Consultation March 14, 2018 [employer] Phone Consultation Sep 24, 2019 [employer] Phone Consultation Jul 18, 2020 [facility] VISIT ESTABLISHED PATIENT Sep 07, 2022 VENIPUNCT, ROUTINE* (IH) April 05, 2014 SPECIMEN HANDLING March 31, 2022 IMMUNIZATION ADMIN Jul 12, 2016 ELECTROCARDIOGRAM REPORT April 05, 2014 ELECTROCARDIOGRAM, TRACING April 05, 2014 [facility] VISIT ESTABLISHED PATIENT March 21, 2015 CAPILLARY BLOOD DRAW Sep 12, 2018 CAPILLARY BLOOD DRAW Aug 23, 2018 CAPILLARY BLOOD DRAW April 19, 2018 CAPILLARY BLOOD DRAW Jun 15, 2019 CAPILLARY BLOOD DRAW Jul 26, 2018 CAPILLARY BLOOD DRAW April 13, 2019 CAPILLARY BLOOD DRAW February 21, 2019 CAPILLARY BLOOD DRAW Oct 04, 2018 CAPILLARY BLOOD DRAW Jun 21, 2018 [facility] VISIT ESTABLISHED PATIENT March 26, 2019 U/S ABD May 23, 2019 [facility] VISIT ESTABLISHED PATIENT Jun 01, 2019 URINE-NO MICRO (Urine Dip Stick) Jun 06, 2019 [facility] VISIT ESTABLISHED PATIENT Nov 13, 2015 [facility] VISIT ESTABLISHED PATIENT February 11, 2016 VENIPUNCTURE IH Dec 12, 2017 [facility] VISIT ESTABLISHED PATIENT March 08, 2018 ELECTROCARDIOGRAM REPORT April 21, 2015 CAPILLARY BLOOD DRAW Oct 31, 2015 CAPILLARY BLOOD DRAW Sep 02, 2021 [facility] VISIT ESTABLISHED PATIENT May 03, 2019 ELECTROCARDIOGRAM REPORT February 27, 2018 CAPILLARY BLOOD DRAW April 01, 2020 CAPILLARY BLOOD DRAW Dec 16, 2020 [facility] VISIT ESTABLISHED PATIENT Nov 05, 2015 CAPILLARY BLOOD DRAW Sep 12, 2019 CAPILLARY BLOOD DRAW Oct 03, 2019 [facility] VISIT ESTABLISHED PATIENT January 16, 2020 URINE-NO MICRO (Urine Dip Stick) April 14, 2015 HEMOGLOBIN May 14, 2019 CAPILLARY BLOOD DRAW Jul 17, 2019 CAPILLARY BLOOD DRAW Jul 19, 2018 PROTHROMBIN TIME Aug 23, 2018 CAPILLARY BLOOD DRAW April 12, 2018 PROTHROMBIN TIME April 19, 2018 CAPILLARY BLOOD DRAW March 17, 2018 PROTHROMBIN TIME Jun 15, 2019 HEMOGLOBIN Dec 13, 2012 PROTHROMBIN TIME January 22, 2019 FLU VACCINE Jul 30, 2022 LIPID PANEL April 05, 2014 CAPILLARY BLOOD DRAW Sep 06, 2019 ELECTROCARDIOGRAM, TRACING Sep 07, 2022 PROTHROMBIN TIME Nov 12, 2020 PROTHROMBIN TIME Aug 13, 2020 PROTHROMBIN TIME Oct 03, 2019 PROTHROMBIN TIME Nov 07, 2019 CAPILLARY BLOOD DRAW Aug 13, 2020 CAPILLARY BLOOD DRAW Nov 07, 2019 [facility] VISIT ESTABLISHED PATIENT Aug 30, 2019 URINE-NO MICRO (Urine Dip Stick) May 25, 2019 CAPILLARY BLOOD DRAW April 05, 2014 [facility] VISIT ESTABLISHED PATIENT April 17, 2019 ELECTROCARDIOGRAM REPORT Sep 07, 2022 CAPILLARY BLOOD DRAW Nov 12, 2020 PROTHROMBIN TIME April 01, 2020 [facility] VISIT ESTABLISHED PATIENT January 16, 2020 [facility] VISIT ESTABLISHED PATIENT May 14, 2019 PROTHROMBIN TIME Dec 16, 2020 PROTHROMBIN TIME Jun 03, 2021 PROTHROMBIN TIME Sep 02, 2021 CAPILLARY BLOOD DRAW January 22, 2019 GLYCATED HEMOGLOBIN TEST December 30, 2021 ELECTROCARDIOGRAM, TRACING February 27, 2018 PROTHROMBIN TIME April 27, 2019 PROTHROMBIN TIME December 30, 2021 Transitional Care Management-CC Portion April 12, 2022 GLYCATED HEMOGLOBIN TEST Jun 03, 2021 [facility] FLU VACCINE Jul 29, 2017 INFLUENZA-Adults ([facility] PURCHASED) Jul 11, 2013 CAPILLARY BLOOD DRAW May 20, 2017 CAPILLARY BLOOD DRAW Nov 22, 2016 CAPILLARY BLOOD DRAW Jul 12, 2016 [employer] Phone Consultation Sep 23, 2022 [facility] VISIT ESTABLISHED PATIENT April 01, 2015 PROTHROMBIN TIME March 23, 2018 PROTHROMBIN TIME March 30, 2018 CAPILLARY BLOOD DRAW May 22, 2019 PROTHROMBIN TIME May 03, 2018 CAPILLARY BLOOD DRAW May 17, 2019 PROTHROMBIN TIME Jun 21, 2018 [facility] VISIT ESTABLISHED PATIENT January 23, 2018 PROTHROMBIN TIME April 13, 2019 PROTHROMBIN TIME Jul 26, 2018 PROTHROMBIN TIME February 21, 2019 PROTHROMBIN TIME Oct 04, 2018 PROTHROMBIN TIME Sep 12, 2018 PROTHROMBIN TIME Sep 10, 2020 PROTHROMBIN TIME Oct 08, 2020 PROTHROMBIN TIME December 23, 2020 PROTHROMBIN TIME December 30, 2020 PROTHROMBIN TIME January 13, 2021 PROTHROMBIN TIME February 10, 2021 URINE-NO MICRO (Urine Dip Stick) May 23, 2019 [facility] FLU VACCINE Jul 25, 2021 PROTHROMBIN TIME February 24, 2021 [facility] VISIT ESTABLISHED PATIENT Nov 07, 2019 HEMOGLOBIN February 07, 2013 [facility] VISIT ESTABLISHED PATIENT February 27, 2018 ELECTROCARDIOGRAM, TRACING April 21, 2015 [facility] VISIT ESTABLISHED PATIENT Jun 15, 2019 GLYCATED HEMOGLOBIN TEST Oct 31, 2015 IMMUNIZATION ADMIN Jul 29, 2017 PHYSICAL MEDICINE PROCEDURE January 22, 2019 [facility] FLU VACCINE Aug 23, 2018 [facility] VISIT ESTABLISHED PATIENT Dec 12, 2017 HEMOGLOBIN April 05, 2014 PROTHROMBIN TIME Sep 07, 2022 [facility] VISIT ESTABLISHED PATIENT May 23, 2019 U/S ABD May 25, 2019 PROTHROMBIN TIME Sep 12, 2019 [facility] VISIT ESTABLISHED PATIENT May 17, 2019 [facility] VISIT ESTABLISHED PATIENT Jun 06, 2019 PROTHROMBIN TIME December 27, 2018 URINE-NO MICRO (Urine Dip Stick) Jun 15, 2019 FLU VACCINE Aug 23, 2018 [facility] VISIT ESTABLISHED PATIENT Sep 07, 2019 [facility] VISIT ESTABLISHED PATIENT April 27, 2019 PROTHROMBIN TIME April 05, 2018 VENIPUNCTURE IH February 27, 2018 CAPILLARY BLOOD DRAW April 06, 2022 [facility] VISIT ESTABLISHED PATIENT Dec 16, 2020 PROTHROMBIN TIME Sep 26, 2019 [facility] VISIT ESTABLISHED PATIENT April 01, 2020 IMMUNIZATION ADMIN Aug 06, 2015 PROTHROMBIN TIME Aug 02, 2018 [facility] VISIT ESTABLISHED PATIENT Nov 07, 2019 PROTHROMBIN TIME Oct 25, 2018 [facility] VISIT ESTABLISHED PATIENT Oct 03, 2019 PROTHROMBIN TIME Nov 29, 2018 [facility] VISIT ESTABLISHED PATIENT Sep 12, 2019 PROTHROMBIN TIME April 06, 2019 URINE-NO MICRO (Urine Dip Stick) Jun 01, 2019 PROTHROMBIN TIME Jun 18, 2019 PROTHROMBIN TIME Jun 26, 2019 PROTHROMBIN TIME Aug 08, 2019 PROTHROMBIN TIME Oct 19, 2019 [facility] VISIT ESTABLISHED PATIENT Oct 31, 2015 PROTHROMBIN TIME Dec 07, 2019 [facility] VISIT ESTABLISHED PATIENT April 21, 2015 PROTHROMBIN TIME January 04, 2020 PROTHROMBIN TIME April 06, 2022 PROTHROMBIN TIME February 04, 2020 CAPILLARY BLOOD DRAW February 07, 2013 PROTHROMBIN TIME March 06, 2020 [facility] VISIT ESTABLISHED PATIENT Sep 26, 2019 PROTHROMBIN TIME May 27, 2020 PROTHROMBIN TIME Jun 27, 2020 FQ VISIT ESTABLISHED PATIENT April 05, 2018 CAPILLARY BLOOD DRAW Oct 19, 2019 PROTHROMBIN TIME April 29, 2020 CAPILLARY BLOOD DRAW Aug 08, 2019 GLYCATED HEMOGLOBIN TEST March 10, 2016 CAPILLARY BLOOD DRAW Jun 26, 2019 CAPILLARY BLOOD DRAW Jun 18, 2019 [facility] VISIT ESTABLISHED PATIENT March 10, 2016 CAPILLARY BLOOD DRAW April 06, 2019 [facility] VISIT ESTABLISHED PATIENT April 29, 2020 CAPILLARY BLOOD DRAW Nov 29, 2018 CAPILLARY BLOOD DRAW Jun 03, 2021 CAPILLARY BLOOD DRAW Oct 25, 2018 CAPILLARY BLOOD DRAW December 30, 2021 CAPILLARY BLOOD DRAW Aug 02, 2018 CAPILLARY BLOOD DRAW January 13, 2021 CAPILLARY BLOOD DRAW February 10, 2021 CAPILLARY BLOOD DRAW Sep 10, 2020 CAPILLARY BLOOD DRAW Oct 08, 2020 CAPILLARY BLOOD DRAW December 23, 2020 CAPILLARY BLOOD DRAW December 30, 2020 CAPILLARY BLOOD DRAW February 04, 2020 CAPILLARY BLOOD DRAW March 31, 2022 CAPILLARY BLOOD DRAW March 06, 2020 [facility] VISIT ESTABLISHED PATIENT December 30, 2021 CAPILLARY BLOOD DRAW May 27, 2020 [facility] VISIT ESTABLISHED PATIENT Jun 03, 2021 CAPILLARY BLOOD DRAW Jun 27, 2020 [facility] VISIT ESTABLISHED PATIENT March 04, 2021 CAPILLARY BLOOD DRAW April 29, 2020 [facility] VISIT ESTABLISHED PATIENT Aug 15, 2017 CAPILLARY BLOOD DRAW March 10, 2016 [facility] VISIT ESTABLISHED PATIENT March 31, 2022 INFLUENZA-Adults ([facility] PURCHASED) Aug 06, 2015 PROTHROMBIN TIME May 14, 2019 CAPILLARY BLOOD DRAW Sep 26, 2019 US XTR NON-VASC LMTD Sep 07, 2019 VENIPUNCT, ROUTINE* (IH) Jul 11, 2013 [facility] VISIT ESTABLISHED PATIENT April 02, 2019 [facility] VISIT ESTABLISHED PATIENT Nov 22, 2016 [facility] VISIT ESTABLISHED PATIENT March 24, 2018 [facility] VISIT ESTABLISHED PATIENT May 20, 2017 CAPILLARY BLOOD DRAW April 05, 2018 [facility] VISIT ESTABLISHED PATIENT Jul 12, 2016 CAPILLARY BLOOD DRAW March 21, 2019 CAPILLARY BLOOD DRAW December 27, 2018 PROTHROMBIN TIME May 25, 2019 CAPILLARY BLOOD DRAW May 24, 2018 HEMOGLOBIN May 17, 2019 CAPILLARY BLOOD DRAW Oct 11, 2018 [facility] VISIT ESTABLISHED PATIENT Jul 02, 2015 [facility] VISIT ESTABLISHED PATIENT Dec 13, 2014 FLU VACCINE Jul 25, 2021 COVID-19 30 mcg/0.3 mL (Pfizer) March 26, 2022 HEMOGLOBIN April 06, 2022 CAPILLARY BLOOD DRAW February 24, 2021 [facility] VISIT ESTABLISHED PATIENT Aug 13, 2020 PROTHROMBIN TIME March 21, 2019 PROTHROMBIN TIME Oct 11, 2018 CAPILLARY BLOOD DRAW Sep 07, 2022 PROTHROMBIN TIME Nov 08, 2018 ASSAY, GLUCOSE, BLOOD QUANT April 05, 2014 PROTHROMBIN TIME May 24, 2018 GLYCATED HEMOGLOBIN TEST January 22, 2019 CAPILLARY BLOOD DRAW May 25, 2019 PROTHROMBIN TIME May 22, 2019 PROTHROMBIN TIME May 17, 2019 GLYCATED HEMOGLOBIN TEST May 20, 2017 GLYCATED HEMOGLOBIN TEST Nov 22, 2016 GLYCATED HEMOGLOBIN TEST Jul 12, 2016 IMMUNIZATION ADMIN Jul 11, 2013 CAPILLARY BLOOD DRAW Dec 13, 2012 PROTHROMBIN TIME Sep 06, 2019 [facility] FLU VACCINE Jul 30, 2022 PROTHROMBIN TIME Jul 17, 2019 PROTHROMBIN TIME Jul 19, 2018 PROTHROMBIN TIME April 12, 2018 PROTHROMBIN TIME March 17, 2018 [facility] VISIT ESTABLISHED PATIENT April 14, 2015 CAPILLARY BLOOD DRAW May 14, 2019 GLYCATED HEMOGLOBIN TEST March 31, 2022 EKG WITH INTERPRETATION 2014-04-05 N/A EKG WITH INTERPRETATION 2015-04-21 N/A CAPILLARY BLOOD DRAW January 04, 2020 CAPILLARY BLOOD DRAW Dec 07, 2019 RESULTS Name Result Date Reference Range PT INR [facility] 2022-09-07 Prothrombin Time INR 3.4 APTT Do not use CREATININE 2022-04-08 CREAT 1.15 0.70-1.30 EGFRAA 74[address] Urogram Abdomen and Pelvis 2022-04-08 HEMOGLOBIN 2022-04-06 HEMOGLOBIN 13.5 PT INR [facility] 2022-04-06 Prothrombin Time INR 3.1 APTT Do not use HGA1C FINGERSTICK 2022-03-31 HGA1C 6.3 4 - 7 URINE CULTURE ROUTINE 2022-03-31 CULTURE, URINE, ROUTINE SEE NOTE PSA TOTAL 2022-03-31 PSA, TOTAL 0.49 < OR = 4.00 URINALYSIS COMPLETE 2022-03-31 APPEARANCE TURBID CLEAR BACTERIA NONE SEEN NONE SEEN BILIRUBIN NEGATIVE NEGATIVE COLOR YELLOW YELLOW GLUCOSE NEGATIVE NEGATIVE HYALINE CAST NONE SEEN NONE SEEN KETONES NEGATIVE NEGATIVE LEUKOCYTE ESTERASE 3+ NEGATIVE NITRITE NEGATIVE NEGATIVE NOTE OCCULT BLOOD 3+ NEGATIVE PH 5.5 5.0-8.0 PROTEIN 2+ NEGATIVE RBC >OR = 60 < OR = 2 SPECIFIC GRAVITY 1.013 1.001-1.035 SQUAMOUS EPITHELIAL CELLS NONE SEEN < OR = 5 WBC PACKED < OR = 5 HGA1C FINGERSTICK 2021-12-30 HGA1C 5.9 4 - 7 PT INR [facility] 2021-12-30 Prothrombin Time INR 2.7 APTT Do not use PT INR [facility] 2021-09-02 Prothrombin Time INR 2.3 APTT Do not use BMP 2021-09-02 UREA NITROGEN (BUN) 20 7-25 BUN/CREATININE RATIO NOT APPLICABLE 04-14 CALCIUM 8.9 8.6-10.3 CARBON DIOXIDE 22 20-32 CHLORIDE 105 98-110 CREATININE 0.92 0.70-1.11 eGFR 91 >OR = 60 eGFR NON-AFR. TURKISH 78 >OR = 60 GLUCOSE 118 65-99 POTASSIUM 4.3 3.5-5.3 SODIUM 136 135-146 HGA1C FINGERSTICK 2021-06-03 HGA1C 5.6 4 - 7 PT INR [facility] 2021-06-03 Prothrombin Time INR 1.9 APTT Do not use PT INR [facility] Prothrombin Time INR 2.5 APTT Do not use PT INR [facility] 2021-02-10 Prothrombin Time INR 2.3 APTT Do not use PT INR [facility] 2021-01-13 Prothrombin Time INR 2.8 APTT Do not use PT INR [facility] 2020-12-30 Prothrombin Time INR 3.0 APTT Do not use PT INR [facility] 2020-12-23 Prothrombin Time INR 2.8 APTT Do not use PT INR [facility] 2020-12-16 Prothrombin Time INR 1.7 APTT Do not use Xray Chest PA and Lateral 2020-11-17 Results: PT INR [facility] 2020-11-12 Prothrombin Time INR 2.7 APTT Do not use BMP 2020-11-12 UREA NITROGEN (BUN) 20 7-25 BUN/CREATININE RATIO NOT APPLICABLE 04-14 CALCIUM 9.0 8.6-10.3 CARBON DIOXIDE 22 20-32 CHLORIDE 105 98-110 CREATININE 0.93 0.70-1.18 eGFR 90 >OR = 60 eGFR NON-AFR. TURKISH 78 >OR = 60 GLUCOSE 111 65-99 POTASSIUM 4.2 3.5-5.3 SODIUM 136 135-146 CULTURE SPUTUM LOWER RESPIRATORY 2020-11-12 CULTURE, SPUTUM/LOWER RESPIRATORY SEE NOTE LIPID PANEL 2020-11-12 CHOLESTEROL, TOTAL 203 <200 CHOLESTEROL, TOTAL 203 <200 HDL CHOLESTEROL 35 >OR = 40 LDL-CHOLESTEROL 126 NON HDL CHOLESTEROL 168 <130 CHOL/HDLC RATIO 5.8 <5.0 TRIGLYCERIDES 275 <150 PT INR [facility] 2020-10-08 Prothrombin Time 34.2 INR 2.8 APTT Do not use PT INR [facility] 2020-09-10 Prothrombin Time INR 2.3 APTT Do not use PT INR [facility] 2020-08-13 Prothrombin Time INR 2.3 APTT Do not use PT INR [facility] 2020-06-27 Prothrombin Time 27.9 INR 2.3 APTT Do not use PT INR [facility] 2020-05-27 Prothrombin Time INR 2.5 APTT Do not use PT INR [facility] 2020-04-29 Prothrombin Time INR 2.5 APTT Do not use PT INR [facility] 2020-04-01 Prothrombin Time INR 2.6 APTT Do not use PT INR [facility] 2020-03-06 Prothrombin Time INR 2.5 APTT Do not use PT INR [facility] 2020-02-04 Prothrombin Time INR 2.4 APTT Do not use PT INR [facility] 2020-01-04 Prothrombin Time INR 2.1 APTT Do not use PT INR [facility] 2019-12-07 Prothrombin Time INR 2.6 APTT Do not use PT INR [facility] 2019-11-07 Prothrombin Time INR 2.1 APTT Do not use PT INR [facility] 2019-10-19 Prothrombin Time INR 2.9 APTT Do not use PT INR [facility] 2019-10-03 Prothrombin Time INR 2.0 APTT Do not use PT INR [facility] 2019-09-26 Prothrombin Time INR 3.1 APTT Do not use PT [facility]R [facility] 2019-09-22 INR 2.40 INR 2.40 INR 2.40 INR 2.40 24.0 9.1-11.0 PT INR [facility] 2019-09-12 Prothrombin Time INR 2.0 APTT Do not use Ultrasound Soft Tissue Limit ed 2019-09-07 PT INR [facility] 2019-09-06 Prothrombin Time INR 1.9 APTT Do not use CMP 2019-09-05 A/G 1.0 AGAP 14.8 ALB 3.1 3.4-5.0 ALKP 62 38-126 ALT 25 16-63 AST 17 15-37 BUN 20 7-18 BN/CR 22.3 CA 8.2 8.5-10.1 CO2 25 21-32 CL 106 98-107 CREAT 0.88 0.70-1.30 EGFRAA 101.51 EGFRNAA 83.75 GLOB 3.02 GLU 113.0 70.0-100.0 K 4.4 3.5-5.1 NA 141 136-145 TBIL 0.3 <=1.2 TP 6.1 6.4-8.2 PT INR [facility] 2019-09-05 INR 1.39 INR 1.39 INR 1.39 INR 1.39 13.9 9.1-11.0 CBC, AUTO DIFF 2019-09-05 BA# 0.02 0.00-0.20 BA% 0.3 0.0-2.0 EO# 0.26 0.00-0.70 EO% 4.3 1.0-7.0 HCT 41 40-50 HGB 13.7 13.5-17.5 LY# 1.10 1.20-3.40 LY% 18 19-48 MCH 30.4 33.0-36.0 MCHC 33 33-36 MCV 91.6 80.0-97.0 MO# 0.58 0.11-0.70 MO% 9.6 3.0-10.0 NE# 4.10 1.20-6.70 NEUT% 68 40-74 PLATELETS 184 150-400 RBC 4.50 4.20-5.90 RDW 14.7 11.6-14.8 WBC 6.1 4.8-10.8 ESR 2019-09-05 ESR 34.00 0.00-15.00 C-REACTIVE PROTEIN 2019-09-05 CRP 0.50 <0.90 CBC, AUTO DIFF 2019-09-04 BA# 0.03 0.00-0.20 BA% 0.5 0.0-2.0 EO# 0.22 0.00-0.70 EO% 3.7 1.0-7.0 HCT 43 40-50 HGB 14.1 13.5-17.5 LY# 1.05 1.20-3.40 LY% 18 19-48 MCH 29.9 33.0-36.0 MCHC 33 33-36 MCV 90.7 80.0-97.0 MO# 0.63 0.11-0.70 MO% 10.7 3.0-10.0 NE# 3.97 1.20-6.70 NEUT% 67 40-74 PLATELETS 190 150-400 RBC 4.71 4.20-5.90 RDW 14.9 11.6-14.8 WBC 5.9 4.8-10.8 CMP 2019-09-04 A/G 1.0 AGAP 14.7 ALB 3.0 3.4-5.0 ALKP 65 38-126 ALT 25 16-63 AST 19 15-37 BUN 17 7-18 BN/CR 19.3 CA 8.3 8.5-10.1 CO2 CL 105 98-107 CREAT 0.89 0.70-1.30 EGFRAA 100.20 EGFRNAA 82.67 GLOB 3.16 GLU 109.0 70.0-100.0 K 3.9 3.5-5.1 NA 140 136-145 TBIL 0.4 <=1.2 TP 6.2 6.4-8.2 PT INR [facility] 2019-09-04 INR 1.37 INR 1.37 INR 1.37 INR 1.37 13.7 9.1-11.0 ESR 2019-09-04 ESR 41.00 0.00-15.00 C-REACTIVE PROTEIN 2019-09-04 CRP 1.10 <0.90 CMP 2019-09-03 A/G 0.9 AGAP 13.9 ALB 3.1 3.4-5.0 ALKP 63 38-126 ALT 24 16-63 AST 19 15-37 BUN 16 7-18 BN/CR 16.0 CA 8.5 8.5-10.1 CO2 CL 105 98-107 CREAT 1.02 0.70-1.30 EGFRAA 85.61 EGFRNAA 70.63 GLOB 3.45 GLU 116.0 70.0-100.0 K 4.0 3.5-5.1 NA 140 136-145 TBIL 0.7 <=1.2 TP 6.5 6.4-8.2 PT INR [facility] 2019-09-03 INR 1.73 INR 1.73 INR 1.73 INR 1.73 17.3 9.1-11.0 VANCOMYCIN TROUGH 2019-09-03 VANCTR 13.7 5.0-10.0 CBC, AUTO DIFF 2019-09-03 BA# 0.02 0.00-0.20 BA% 0.3 0.0-2.0 EO# 0.23 0.00-0.70 EO% 3.4 1.0-7.0 HCT 42 40-50 HGB 13.7 13.5-17.5 LY# 1.01 1.20-3.40 LY% 15 19-48 MCH 30.2 33.0-36.0 MCHC 33 33-36 MCV 93.0 80.0-97.0 MO# 0.72 0.11-0.70 MO% 10.8 3.0-10.0 NE# 4.71 1.20-6.70 NEUT% 70 40-74 PLATELETS 181 150-400 RBC 4.54 4.20-5.90 RDW 14.9 11.6-14.8 WBC 6.7 4.8-10.8 ESR 2019-09-03 ESR 41.00 0.00-15.00 C-REACTIVE PROTEIN 2019-09-03 CRP 2.30 <0.90 BMP 2019-09-02 AGAP 13.7 BUN 14 7-18 BN/CR 14.4 CA 8.3 8.5-10.1 CO2 26 21-32 CL 105 98-107 CREAT 0.97 0.70-1.30 EGFRAA 90.72 EGFRNAA 74.85 GLU 106.0 70.0-100.0 K 4.0 3.5-5.1 NA 140 136-145 PT INR [facility]ILITY 2019-09-02 INR 2.46 INR 2.46 INR 2.46 INR 2.46 24.6 9.1-11.0 CBC, AUTO DIFF 2019-09-02 HCT 41 40-50 HGB 13.3 13.5-17.5 MCH 30.0 33.0-36.0 MCHC 33 33-36 MCV 91.4 80.0-97.0 PLATELETS 166 150-400 RBC 4.43 4.20-5.90 RDW 14.8 11.6-14.8 WBC 6.8 4.8-10.8 CBC, AUTO DIFF 2019-09-02 BA# 0.02 0.00-0.20 BA% 0.3 0.0-2.0 EO# 0.18 0.00-0.70 EO% 2.7 1.0-7.0 HCT 41 40-50 HGB 13.3 13.5-17.5 LY# 0.88 1.20-3.40 LY% 13 19-48 MCH 30.0 33.0-36.0 MCHC 33 33-36 MCV 91.4 80.0-97.0 MO# 0.60 0.11-0.70 MO% 8.8 3.0-10.0 NE# 5.11 1.20-6.70 NEUT% 75 40-74 PLATELETS 166 150-400 RBC 4.43 4.20-5.90 RDW 14.8 11.6-14.8 WBC 6.8 4.8-10.8 CBC, AUTO DIFF 2019-09-02 BA# 0.02 0.00-0.20 BA% 0.3 0.0-2.0 EO# 0.18 0.00-0.70 EO% 2.7 1.0-7.0 HCT 41 40-50 HGB 13.3 13.5-17.5 LY# 0.88 1.20-3.40 LY% 13 19-48 MCH 30.0 33.0-36.0 MCHC 33 33-36 MCV 91.4 80.0-97.0 MO# 0.60 0.11-0.70 MO% 8.8 3.0-10.0 NE# 5.11 1.20-6.70 NEUT% 75 40-74 PLATELETS 166 150-400 RBC 4.43 4.20-5.90 RDW 14.8 11.6-14.8 WBC 6.8 4.8-10.8 CMP 2019-09-01 A/G 0.9 AGAP 14.7 ALB 3.4 3.4-5.0 ALKP 66 38-126 ALT 20 16-63 AST 18 15-37 BUN 18 7-18 BN/CR 15.8 CA 8.7 8.5-10.1 CO2 27 21-32 CL 103 98-107 CREAT 1.11 0.70-1.30 EGFRAA 77.65 EGFRNAA 64.07 GLOB 3.63 GLU 104.0 70.0-100.0 K 4.3 3.5-5.1 NA 141 136-145 TBIL 0.4 <=1.2 TP 7.0 6.4-8.2 PT INR OUTSIDE FACILITY 2019-09-01 INR 3.02 INR 3.02 INR 3.02 INR 3.02 30.2 9.1-11.0 PTT 2019-09-01 PTT 41.2 22.8-30.5 CBC, AUTO DIFF 2019-09-01 BA# 0.03 0.00-0.20 BA% 0.4 0.0-2.0 EO# 0.18 0.00-0.70 EO% 2.5 1.0-7.0 HCT 42 40-50 HGB 13.8 13.5-17.5 LY# 1.16 1.20-3.40 LY% 16 19-48 MCH 30.5 33.0-36.0 MCHC 33 33-36 MCV 93.4 80.0-97.0 MO# 0.67 0.11-0.70 MO% 9.2 3.0-10.0 NE# 5.26 1.20-6.70 NEUT% 72 40-74 PLATELETS 184 150-400 RBC 4.53 4.20-5.90 RDW 14.8 11.6-14.8 WBC 7.3 4.8-10.8 HGB A1C 2019-09-01 A1C 6.3 4.5-6.2 EAG 134 Xray Ankle Left 2019-08-30 Results: PT INR [facility] Prothrombin Time INR 2.9 APTT Do not use PT INR [facility] 2019-07-17 Prothrombin Time INR 2.8 APTT Do not use PT INR [facility] 2019-06-26 Prothrombin Time INR 2.5 APTT Do not use PT INR [facility] 2019-06-18 Prothrombin Time INR 2.6 APTT Do not use URINE CULTURE ROUTINE 2019-06-18 CULTURE, URINE, ROUTINE SEE NOTE URINE DIP 2019-06-15 Microscopic Examination Urine-Color yellow Appearance cloudy Specific [place] 1.005 pH 5 Glucose neg Protein neg Occult Blood neg Bilirubin neg Urobilinogen,Semi-Qn neg Nitrite, Urine neg Ketones neg Leukocyte esterase neg HCG Urinalysis Gross Exam PT INR [facility] 2019-06-15 Prothrombin Time INR 5.2 APTT Do not use URINE DIP 2019-06-06 Microscopic Examination Urine-Color yellow Appearance cloudy Specific [place] 1.010 pH 6 Glucose neg Protein trace Occult Blood ++ Bilirubin neg Urobilinogen,Semi-Qn neg Nitrite, Urine + Ketones neg Leukocyte esterase ++ HCG Urinalysis Gross Exam URINE CULTURE ROUTINE 2019-06-06 CULTURE, URINE, ROUTINE SEE NOTE URINE DIP 2019-06-01 Microscopic Examination Urine-Color yellow Appearance cloudy Specific [place] 1.010 pH 5 Glucose neg Protein neg Occult Blood neg Bilirubin neg Urobilinogen,Semi-Qn neg Nitrite, Urine neg Ketones neg Leukocyte esterase ++ HCG Urinalysis Gross Exam URINE DIP 2019-05-25 Microscopic Examination Urine-Color yellow Appearance cloudy Specific [place] 1.015 pH 6 Glucose negative Protein trace Occult Blood ++ Bilirubin neg Urobilinogen,Semi-Qn neg Nitrite, Urine + Ketones neg Leukocyte esterase ++ HCG Urinalysis Gross Exam PT INR [facility] 2019-05-25 Prothrombin Time INR 3.1 APTT Do not use URINE CULTURE ROUTINE 2019-05-25 CULTURE, URINE, ROUTINE SEE NOTE Ultrasound Abdominal Limited 5 URINE DIP 2019-05-23 Microscopic Examination Urine-Color yellow Appearance clear Specific [place] 1.010 pH 6 Glucose negative Protein trace Occult Blood +++ Bilirubin neg Urobilinogen,Semi-Qn norm Nitrite, Urine neg Ketones neg Leukocyte esterase + HCG Urinalysis Gross Exam Ultrasound Abdominal Limited 2019-04-25 1 PT INR [facility] 2019-05-22 Prothrombin Time INR 3.0 APTT Do not use CBC, AUTO DIFF 2019-05-18 HCT 32 40-50 HGB 11.0 13.5-17.5 MCH 32.4 33.0-36.0 MCHC 34 33-36 MCV 94.4 80.0-97.0 PLATELETS 383 150-400 RBC 3.39 4.20-5.90 RDW 14.0 11.6-14.8 WBC 11.1 4.8-10.8 MANUAL DIFFERENTIAL 2019-05-18 %BAND 2 0-5 %LYMPHOCYTE 17 20-45 %MONOCYTE 5 2-10 %NEUTROPHIL 76 40-75 PLATELET ESTIMATE ADEQUATE ADEQUATE PT INR OUTSIDE FACILITY 2019-05-18 INR 4.86 INR 4.86 INR 4.86 INR 4.86 PT 46.5 9.4-11.2 HEMOGLOBIN 2019-05-17 HEMOGLOBIN 9.6 PT INR [facility] 2019-05-17 Prothrombin Time 53.9 INR 4.5 APTT Do not use HEMOGLOBIN 2019-05-14 HEMOGLOBIN 11.5 PT INR [facility] 2019-05-14 Prothrombin Time INR 1.9 APTT Do not use PT INR [facility] 2019-04-27 Prothrombin Time 30.3 INR 2.5 APTT Do not use BMP 2019-04-17 UREA NITROGEN (BUN) 17 7-25 BUN/CREATININE RATIO NOT APPLICABLE 6-22 CALCIUM 8.9 8.6-10.3 CARBON DIOXIDE 20 20-32 CHLORIDE 108 98-110 CREATININE 0.90 0.70-1.18 eGFR 94 >OR = 60 eGFR NON-AFR. TURKISH 82 >OR = 60 GLUCOSE 100 65-99 POTASSIUM 4.1 3.5-5.3 SODIUM 139 135-146 PT INR [facility] Prothrombin Time 27.4 INR 2.3 APTT Do not use PT INR [facility] Prothrombin Time 17 INR 1.4 APTT Do not use COLONOSCOPY 2019-04-03 NOTES: RESULTS: Diverticulosis [facility] 2019-03-31 AGAP 21.7 BUN 20 7-18 BN/CR 16.7 CA 7.8 8.5-10.1 CO2 20 21-32 CL 101 98-107 CREAT 1.21 0.70-1.30 EGFRAA 70.48 EGFRNAA 58.15 GLU 124.0 70.0-100.0 K 3.4 3.5-5.1 NA 135 136-145 CBC, AUTO DIFF 2019-03-31 HCT 41 40-50 HGB 14.3 13.5-17.5 MCH 32.1 33.0-36.0 MCHC 35 33-36 MCV 92.8 80.0-97.0 MORPH? NO PLT 83 150-400 RBC 4.45 4.20-5.90 RDW 14.1 11.6-14.8 WBC 7.3 4.8-10.8 TROPONIN 2019-03-31 TROP-I 0.019 0.000-0.056 MAGNESIUM 2019-03-31 MG 1.6 1.8-2.4 MANUAL DIFFERENTIAL 2019-03-31 %ATYP 2 %BAND 20 0-5 %BASO 1 0-1 %LYMPH 6 20-45 %MONO 1 2-10 %SEG 70 40-75 PLTEST NOT ADEQUATE ADEQUATE URINE DIP WITH REFLEX TO CULTURE 2019-03-30 JLUIS Clear CLEAR BILB Negative NEGATIVE BLD Trace-intact NEGATIVE COLOR Yellow YELLOW GLUC Negative NEGATIVE KET Negative NEGATIVE LEUKO Negative NEGATIVE NIT Negative NEGATIVE PH 7.0 PROT 1+ NEGATIVE SPGR 1.020 1.015-1.025 URO 1.0 E.U./dL 0.2 E.U./DL URINE DIP WITH REFLEX TO CULTURE 2019-03-30 JLUIS Clear CLEAR BILB Negative NEGATIVE BLD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
[2022-12-17 17:16] LABS: BUN 32 mg/dL (7-18); CREATININE 1.1 mg/dL (0.70-1.30); Estimated GFR 67.44 (mL/min/1.73m2)
== END 2022-12-17 15:23 | disposition home or self-care (01) ==
LOC: LBN 15:22
PROVIDERS: PCP Family Medicine; Visit Provider Urology
DX: R33.9 Retention of urine, unspecified (principal)
CPT/HCPCS: 84520; 82565

== ENCOUNTER → 2023-03-18 13:46 | Outpatient (BNVA) | payer MEDICARE, SELFPAY | PROVIDERS: PCP Family Medicine; Referring Provider Family Medicine; Visit Provider Urology | DX: N28.1 Cyst of kidney, acquired (principal); R33.9 Retention of urine, unspecified | CPT/HCPCS: 76775; 81003; 87077; 87086; 87186 ==

== ENCOUNTER → 2023-05-12 15:14 | Outpatient (BNVA) | payer MEDICARE, SELFPAY | PROVIDERS: PCP Family Medicine; Referring Provider Family Medicine; Visit Provider Urology | DX: Z09 Encounter for follow-up examination after completed treatment for conditions other than malignant neoplasm (principal); Z87.440 Personal history of urinary (tract) infections | CPT/HCPCS: 81003; 99213 ==

== ENCOUNTER 2023-05-12 16:01 | Outpatient (REF) | payer MEDICARE, SELFPAY | END 2023-05-12 16:02 | disposition home or self-care (01) | LOC: LBN 16:01 | PROVIDERS: PCP Family Medicine; Visit Provider Urology | DX: R33.9 Retention of urine, unspecified (principal) | CPT/HCPCS: 87077; 87086; 87186 ==

== ENCOUNTER → 2023-07-22 15:29 | Outpatient (BNVA) | payer MEDICARE, SELFPAY | PROVIDERS: PCP Family Medicine; Referring Provider Family Medicine; Visit Provider Urology | DX: Z87.440 Personal history of urinary (tract) infections (principal); R33.9 Retention of urine, unspecified | CPT/HCPCS: 76775; 81003 ==

== ENCOUNTER 2023-07-22 15:57 | Outpatient (REF) | payer MEDICARE, SELFPAY | END 2023-07-22 15:58 | disposition home or self-care (01) | LOC: LBN 15:57 | PROVIDERS: PCP Family Medicine; Visit Provider Urology | DX: N39.0 Urinary tract infection, site not specified (principal); R82.79 Other abnormal findings on microbiological examination of urine | CPT/HCPCS: 87077; 87086; 87186 ==

== ENCOUNTER → 2023-10-18 13:46 | Outpatient (BNVA) | payer MEDICARE, SELFPAY | PROVIDERS: PCP Family Medicine; Referring Provider Family Medicine; Visit Provider Urology | DX: R33.8 Other retention of urine (principal); N32.0 Bladder-neck obstruction; N39.0 Urinary tract infection, site not specified | CPT/HCPCS: 76775; 81003 ==

== ENCOUNTER → 2024-02-17 13:43 | Outpatient (BNVA) | payer MEDICARE, SELFPAY | PROVIDERS: PCP Family Medicine; Referring Provider Family Medicine; Visit Provider Urology | DX: R33.9 Retention of urine, unspecified (principal); N32.0 Bladder-neck obstruction; N39.0 Urinary tract infection, site not specified | CPT/HCPCS: 76775; 81003 ==

== ENCOUNTER → 2024-08-03 14:23 | Outpatient (BNVA) | payer MEDICARE, SELFPAY | PROVIDERS: PCP Family Medicine; Referring Provider Family Medicine; Visit Provider Urology | DX: R33.9 Retention of urine, unspecified (principal) | CPT/HCPCS: 76775 ==

== ENCOUNTER → 2025-03-08 14:16 | Outpatient (BNVA) | payer MEDICARE, SELFPAY | PROVIDERS: PCP Family Medicine; Referring Provider Family Medicine; Visit Provider Urology | DX: R33.9 Retention of urine, unspecified (principal); N13.8 Other obstructive and reflux uropathy; N32.0 Bladder-neck obstruction; N40.1 Benign prostatic hyperplasia with lower urinary tract symptoms | CPT/HCPCS: 76775; 81003 ==

== ENCOUNTER → 2025-09-13 10:27 | Outpatient (BNVA) | payer MEDICARE, SELFPAY | PROVIDERS: PCP Family Medicine; Referring Provider Family Medicine; Visit Provider Urology | DX: R33.9 Retention of urine, unspecified (principal) | CPT/HCPCS: 76775; 81002 ==